=== PATIENT | male | born 1990 | race Caucasian/White ===

== ENCOUNTER → 2022-10-18 11:25 | Outpatient (BNVA) | payer SELFPAY | PROVIDERS: Visit Provider Emergency Medicine | DX: E66.01 Morbid (severe) obesity due to excess calories (principal); I51.7 Cardiomegaly; I10 Essential (primary) hypertension; R00.0 Tachycardia, unspecified; R07.9 Chest pain, unspecified; R07.2 Precordial pain | CPT/HCPCS: 80053; 80061; 84443; 85025 ==